=== PATIENT | male | born 1980 | race Caucasian/White ===

== ENCOUNTER 2016-04-08 16:11 | Emergency (ER) | payer MEDICAID ==
--- NOTE | 2016-04-08 16:40 | EDPHY ---
H & P Time Seen by Provider: 04/08/16 16:27 HPI/ROS: CHIEF COMPLAINT: Fever, chills. HISTORY OF PRESENT ILLNESS: The patient is a 36-year-old male with a history of Hodgkin's Lymphoma, hypoglobulinemia and necrotizing fasciitis presenting with fever and chills that began last night. Temperature to 98.9F. Associated with mild productive cough and a sore throat. He did get a flu shot this year. he has had one round of chemotherapy but developed necrotizing fasciitis after the 1st round of chemotherapy and the chemotherapy has subsequently been held. He took Aleve PM last evening, no meds today. He denies pain in his left lower extremity. The left lower extremity has been problematic in that he developed a Pseudomonas necrotizing fasciitis, followed by a severe strep infection in that area. REVIEW OF SYSTEMS: A complete 10-point review of systems was performed and is negative except for those items mentioned in the HPI. Past Medical/Surgical History: Hodgkin's Lymphoma, necrotizing fasciitis. Hypogammaglobulinemia Social History: Former smoker. Smoking Status: Former smoker Physical Exam: General Appearance: Alert, no distress Eyes: Pupils equal and round, no conjunctival pallor or injection ENT, Mouth: Mucous membranes moist. Mild pharyngeal erythema. Neck: Normal inspection Respiratory: Lungs are clear to auscultation Cardiovascular: Regular rate and rhythm Gastrointestinal: Abdomen is soft and non-tender Neurological: A&O, nonfocal, normal gait Skin: Warm and dry, no rash Extremities: Nontender, no pedal edema. LLE: open wound on lateral aspect of lower leg. No drainage or erythema. Psychiatric: Mood and affect normal Constitutional: Initial Vital Signs Temperature (C) 37.5 C 04/08/16 16:18 Heart Rate 97 04/08/16 16:18 Respiratory Rate 18 04/08/16 16:18 Blood Pressure 135/88 H 04/08/16 16:18 O2 Sat (%) 96 04/08/16 16:18 O2 Delivery Mode Room Air Allergies/Adverse Reactions: No Known Allergies Allergy (Verified 04/08/16 16:15) Home Medications: Medication Instructions Recorded ALPRAZolam [Xanax 0.25 MG (*)] 0.25 mg PO TID #0 tab 11/22/15 Acyclovir [Zovirax 400 mg (*)] 400 mg PO BID #0 tab 11/22/15 Triamcinolone 0.025% 1 marco TP TID #0 cream 12/13/15 [Triamcinolone 0.025% cream (*)] Calcium Carbonate [Tums 500MG (*)] 500 mg PO Q3 PRN 01/02/16 Ondansetron Odt [Zofran Odt 4 mg 4 mg PO Q4HRS PRN #30 tab 01/03/16 (*)] Sennosides [Senokot] 1 tab PO BID PRN #60 tab 01/03/16 Citalopram [CeleXA 20 MG] 40 mg PO DAILY 01/21/16 Morphine Sulfate [Ms Contin] 45 mg PO BID@07,12 01/21/16 Morphine Sulfate [Ms Contin] 90 mg PO HS 01/21/16 Ibuprofen [Motrin (*)] 600 mg PO Q6 PRN #60 tab 01/30/16 Clobetasol 0.05% 04/08/16 Enstilar 0.005%-0.064% Foam 04/08/16 Fluocinolone 0.01% 04/08/16 Temazepam 04/08/16 Medical Decision Making - Diagnostics Imaging: Chest x-ray reviewed by radiology reveals no focal pneumonia. ED Course/Re-evaluation: This immunocompromised patient presents with low-grade fever and upper respiratory symptoms. He is nontoxic on presentation and does not meet SIRS criteria. Chest x-ray obtained. Flu swab drawn and sent to lab. An IV was established and CBC ordered. Influenza negative and chest x-ray reveals no evidence of pneumonia. Clinically, there is no evidence a serious bacterial infection. I feel that he is safe and stable for discharge home. I do not feel that antibiotics are indicated this patient he has a viral respiratory infection. Differential Diagnosis: Differential diagnosis includes but is not limited to pneumonia, otitis media, influenza, peritonsillar abscess, retropharyngeal abscess, meningitis, soft tissue infection. - Data Points Laboratory Results: Laboratory Results 04/08/16 19:00 04/08/16 04/08/16 04/08/16 19:00 17:55 16:40 WBC 3.83 10^3/uL 10^3/uL REJ (3.80-9.50) RBC 3.49 10^6/uL L 10^6/uL TNP (4.40-6.38) Hgb 11.8 g/dL L g/dL TNP (13.7-17.5) Hct 32.0 % L % TNP (40.0-51.0) MCV 91.7 fL fL TNP (81.5-99.8) MCH 33.8 pg pg TNP (27.9-34.1) MCHC 36.9 g/dL H g/dL TNP (32.4-36.7) RDW 14.3 % % TNP (11.5-15.2) Plt Count 113 10^3/uL L 10^3/uL TNP (150-400) MPV 9.3 fL fL TNP (8.7-11.7) Neut % (Auto) 69.2 % % TNP (39.3-74.2) Lymph % (Auto) 16.7 % % TNP (15.0-45.0) [place] % (Auto) 12.8 % % TNP (4.5-13.0) Eos % (Auto) 0.5 % L % TNP (0.6-7.6) Baso % (Auto) 0.5 % % TNP (0.3-1.7) Nucleat RBC Rel Count 0.0 % % TNP (0.0-0.2) Absolute Neuts (auto) 2.65 10^3/uL 10^3/uL TNP (1.70-6.50) Absolute Lymphs (auto) 0.64 10^3/uL L 10^3/uL TNP (1.00-3.00) Absolute Monos (auto) 0.49 10^3/uL 10^3/uL TNP (0.30-0.80) Absolute Eos (auto) 0.02 10^3/uL L 10^3/uL TNP (0.03-0.40) Absolute Basos (auto) 0.02 10^3/uL 10^3/uL TNP (0.02-0.10) Absolute Nucleated RBC 0.00 10^3/uL 10^3/uL TNP (0-0.01) Immature Gran % 0.3 % % TNP (0.0-1.1) Immature Gran # 0.01 10^3/uL 10^3/uL TNP (0.00-0.10) Influenza Typ A,B (DFA) NEGATIVE FOR FLU (NEGATIVE) Medications Given: Discontinued Medications Acetaminophen (Tylenol) 650 mg PO EDNOW ONE Stop: 04/08/16 17:14 Last Admin: 04/08/16 17:38 Dose: 650 mg Sodium Chloride (Ns) 1,000 mls @ 0 mls/hr IV ONCE ONE PRN Reason: Wide Open Stop: 04/08/16 18:16 Last Admin: 04/08/16 17:50 Dose: 1,000 mls Departure - Departure Disposition: Home, Routine, Self-Care Clinical Impression: Upper respiratory infection Qualifiers: URI type: unspecified URI Qualified Code(s): J06.9 - Acute upper respiratory infection, unspecified Condition: Good Instructions: Upper Respiratory Infection (ED) Additional Instructions: Keep your IVIG appointment tomorrow. Adult Pain & Fever Control: We recommend Acetaminophen (Tylenol) and Ibuprofen (Motrin,Advil) for pain and fever control. When fever is high or pain severe, both drugs can be used at the same time, but at different intervals. Please note the time differences. Your dose is: Acetaminophen 650mg every 4 to 6 hours Ibuprofen 600mg every 6-8 hours with food. Note: do not take Acetaminophen with Hydrocodone (Vicodin, Lortab) or Oycodone (Percocet). These medications also contain Acetaminophen. No more than 3000mg of Acetaminophen should be taken in 24 hours (for an adult). Drink plenty of fluids and be sure to get rest. Follow up with your primary care provider if symptoms are not improving in the next 3-4 days. Return to the emergency department if you experience serious worsening of condition. Referrals: Hilaria Olivares MD [Primary Care Provider] - As per Instructions Report Scribed for: Kayla Cabezas Report Scribed by: Fabio Manning Date of Report: 04/08/16 Time of Report: 16:40 Physician Review and Approval Statement: 04/08/16 16:40 Portions of this note were transcribed by a medical records coder. I personally performed a history, physical exam, medical decision making, and confirmed accuracy of information the transcribed note.
[2016-04-08] MEDS ORDERED: ACETAMINOPHEN 325 MG TAB PO ONE (17:13)
[2016-04-08] MEDS ORDERED: NS 1,000 ML IV ONE (18:15)
[2016-04-08 19:10] LABS: % IMMATURE GRANULYOCYTES 0.3 % (0.0-1.1); ABSOLUTE IMMATURE GRANULOCYTES 0.01 10^3/uL (0.00-0.10); ADD DIFF? NO; ADD MORPH? NO; ADD SCAN? NO; ATYPICAL LYMPHOCYTE FLAG 0 (0-99); FRAGMENT RBC FLAG 0 (0-99); HEMOGLOBIN 11.8 g/dL (13.7-17.5); LEFT SHIFT FLG 0 (0-99); LIPEMIA HEMOLYSIS FLAG 90 (0-99); MEAN CELL HEMOGLOBIN 33.8 pg (27.9-34.1); MEAN CELL HEMOGLOBIN CONCENTR. 36.9 g/dL (32.4-36.7); MEAN CELL VOLUME 91.7 fL (81.5-99.8); MEAN PLATELET VOLUME 9.3 fL (8.7-11.7); PLATELET CLUMPS FLAG 0 (0-99); PLATELET COUNT 113 10^3/uL (150-400); RED BLOOD CELL COUNT 3.49 10^6/uL (4.40-6.38); RED CELL DISTRIBUTION WIDTH 14.3 % (11.5-15.2)
[2016-04-08 19:40] VITALS: BP 129/88; PULSE 75; RESP 16; TEMP 98.2; O2SAT 97
== END 2016-04-08 19:42 | disposition home or self-care (01) ==
DX: J06.9 Acute upper respiratory infection, unspecified (principal); Z85.71 Personal history of Hodgkin lymphoma; Z87.891 Personal history of nicotine dependence

== ENCOUNTER → 2016-11-11 | Outpatient (CLI) | payer MEDICAID | LOC: FIMAGING 11:14 | PROVIDERS: ATTEND Internal Medicine Hematology & Oncology | DX: R05 Cough (principal); R06.2 Wheezing; C81.90 Hodgkin lymphoma, unspecified, unspecified site | CPT/HCPCS: 82784-90 ==